=== PATIENT | male | born 1940 | race Caucasian/White ===

== ENCOUNTER → 2017-01-24 | Day surgery (SDC) | payer OTHER, BC ==
[2017-01-18 09:23] VITALS: BMI 24.0
[~2017-01-24] VITALS: Ht 180.3 cm; Wt 81.8 kg
[~2017-01-24] MED LIST: ACETIC ACID 4% (WHITE VINEGAR) 30ML ONE; BENZOCAIN/TETRACA/BUTAM SPRAY 200 APPLN/20 GM SPRY ONE; BISO5TAB3 PO; CHOL100010 PO; CMD4 PO; CMD5 PO; ETOMIDATE 2 MG/ML 20 ML VIAL IV ONE; FORMCAP INH; FURO-85 PO; LIDOCAINE HCL 2% 2 ML VIAL (20MG/ML) ONE; LOSA50TA6 PO; NTRGSL/4 UT; PROPOFOL IV EMULSION 10 MG/ML 20 ML VIAL IV ONE
[2017-01-24 08:45] VITALS: Ht 180.3 cm; Wt 81.8 kg
[2017-01-24 10:06] LABS: INR 1.8 (0.9-1.1); PROTHROMBIN TIME (PATIENT) 19.4 SECONDS (9.0-12.0)
--- NOTE | 2017-01-24 10:36 | Endo History and Physical ---
History & Physical Date of Service: Jan 24, 2017. Chief Complaint: HX OF ESOPHAGEAL CA Referring Physician: DR. QUINN PATRICIA History of Present Illness H/o esophageal cancer Past Medical History Atrial Fibrillation, Cancer, High Cholesterol, CABG, Hypertension, COPD, Implantable Defibrillator, [place] Past Surgical History Hx Cardiac Surgery: Yes (HEART CATH, CABG X4 VESSELS) Hx Internal Defibrillator: Yes (2011 PLACED) Hx Pacemaker: No Hx Abdominal Surgery: No Hx of Implantable Prosthesis: No Hx Post-Op Nausea and Vomiting: No Hx Cancer Surgery: Yes (ESOPHAGEAL CANCER "REMOVED CANCER") Hx Thoracic Surgery: No Hx Orthopedic: No Hx Urinary Tract Surgery: No Family History None Social History Smoking Status: Former Smoker Hx Substance Use: No Hx Alcohol Use: No Allergies Coded Allergies: No Known Allergies (Verified , 01/24/17) Current Medications Reported Home Medications Medications Dose Route/Sig Max Daily Dose Days Date Category Coumadin (Warfarin Sod) 5 Mg Tab 1 Tab PO DIRECTED 01/18/17 Reported Coumadin (Warfarin Sod) 4 Mg Tab 1 Tab PO DIRECTED 01/18/17 Reported Nitrostat (Nitroglycerin) 0.4 Mg Tab 0.4 Mg UT PRN 09/06/14 Reported Lasix (Furosemide) 20 Mg Tab 20 Mg PO QAM 09/06/14 Reported Vitamin D (Cholecalciferol) 1,000 Inter.unit Tab 1,000 Inter.unit PO QAM 03/03/14 Reported Cozaar (Losartan Potassium) 50 Mg Tab 100 Mg PO QAM 07/02/13 Reported Foradil Aerolizer (Formoterol Fumarate) Cap 1 Puff INH BID 07/02/13 Reported Zebeta (Bisoprolol Fumarate) 5 Mg Tab 5 Mg PO BID 07/02/13 Reported Vital Signs Weight (Kilograms): 81.82 Height (Feet): 5 Height (Inches): 11 Date Time Temp Pulse Resp B/P Pulse Ox O2 Delivery O2 Flow Rate FiO2 01/24/17 09:00 36.4 59 20 143/85 96 Room Air Physical Exam General Appearance: no apparent distress Respiratory/Chest: Respiratory effort: no dyspnea Auscultation: breath sounds normal Cardiovascular: Heart Auscultation: RRR Abdomen: Inspection & Palpation: soft Assessment and Plan h/o esophageal cancer - EGD
--- NOTE | 2017-01-24 10:57 | Discharge Instructions ---
Endoscopy Patient Instructions Date / Procedure(s) Performed Jan 24, 2017. EGD Allergy Information Coded Allergies: No Known Allergies (Verified , 01/24/17) Discharge Date / Findings Jan 24, 2017. No evidence of recurrent dysplasia Medication Instructions Stopped Medication(s): COUMADIN Resume coumadin today Provider Instructions Activity Restrictions - No exercising or heavy lifting for 24 hours. - Do not drink alcohol the day of the procedure. - Do not drive a car or operate machinery until the day after the procedure. - Do not make any important decisions or sign important papers in 24 hours after the procedure. Following Day: - Return to full activity which may include returning to work/school. Diet Start your diet with liquids and light foods (jello, soup, juice, toast). Then eat your usual diet if not nauseated. Treatment For Common After Affects For mild abdominal pain, bloating, or excessive gas: - Rest - Eat lightly - Lie on right side Follow-Up Information Follow-up with DR. QUINN PATRICIA as scheduled Anesthesia Information What You Should Know You have had a procedure that required some medicine to reduce anxiety and discomfort. This treatment is called moderate sedation. After receiving the treatment, you may be sleepy, but you will be able to breathe on your own. The effects of the treatment may last for several hours. Follow these instructions along with Activity/Diet recommendations noted above: * Do NOT do anything where dizziness or clumsiness would be dangerous. * Rest quietly at home today, then you can be up and about tomorrow. * Have a responsible person stay with you the rest of today. * You may have had an I.V. today. If so, you may take the dressing off later today. Recommendations Call your doctor if: * Trouble breathing * Continuous vomiting for more than 24 hours * Temperature above 101 degrees * Severe abdominal pain or bloating * Pain not relieved by pain medicine ordered * There is increased drainage or redness from any incision * A large amount of rectal bleeding greater than 2-3 tablespoons. (If you had a polyp/s removed or have hemorrhoids, a small amount of blood - from the rectum is to be expected.) * You have any unanswered questions or concerns. IN THE EVENT OF A SERIOUS EMERGENCY, GO TO THE NEAREST EMERGENCY ROOM Your discharge instructions were prepared by provider Silver Leo. Patient Instructions Signature Page Alexis [place] Patient (or Guardian) Signature/Date: I have read and understand the instructions given to me by my caregivers. Caregiver/RN/Doctor Signature/Date: The above-named patient and/or guardian has received patient instructions on this date. + Original Patient Signature Page (only) stays with chart. Please make copy for patient.
--- NOTE | 2017-01-24 10:57 | GI REPORT ---
Procedure Date: 01/24/2017 10:28 AM Procedure: Upper GI endoscopy Indications: Personal history of malignant esophageal neoplasm Medicines: See the Anesthesia note for documentation of the administered medications Complications: No immediate complications. Estimated Blood Loss: Estimated blood loss: none. Procedure: Pre-Anesthesia Assessment: - ASA Grade Assessment: IV - A patient with severe systemic disease that is a constant threat to life. After obtaining informed consent, the endoscope was passed under direct vision. Throughout the procedure, the patient's blood pressure, pulse, and oxygen saturations were monitored continuously. The scope was introduced through the mouth, and advanced to the second part of duodenum. The upper GI endoscopy was accomplished without difficulty. The patient tolerated the procedure well. Findings: The GE junction was at 40 cm. There was a mild ring at the GE junction. There was a small erosion < 5 mm at the GE junction. Chromoscopy was performed with acetic acid, and was unremarkable. There was no evidence of dysplasia. There was a small hiatal hernia. The stomach and duodenum were normal. Because the pt's INR was mildly increased, and because prior biopsies did not show dysplasia, random bx of GE junction were not done. Impression: - No specimens collected. Recommendation: - Discharge patient to home. Silver Osorio M.D. Silver Osorio MD 01/24/2017 10:56:54 AM This report has been signed electronically. Note Initiated On: 01/24/2017 10:28 AM I attest to the content of the Intraoperative Record and orders documented therein, exceptions below
--- NOTE | 2017-01-24 11:00 | Anesthesiology Progress Note ---
Anesthesia Post Op Note Date & Time Jan 24, 2017 at 11:01 Vital Signs Pain Intensity: 0 Vital Signs Past 12 Hours Date Time Temp Pulse Resp B/P Pulse Ox O2 Delivery O2 Flow Rate FiO2 01/24/17 10:52 56 16 138/70 98 Room Air 01/24/17 09:00 36.4 59 20 143/85 96 Room Air Notes Mental Status: alert / awake / arousable, participated in evaluation Pt Amnestic to Procedure: Yes Nausea / Vomiting: adequately controlled Pain: adequately controlled Airway Patency, RR, SpO2: stable & adequate BP & HR: stable & adequate Hydration State: stable & adequate Anesthetic Complications: no major complications apparent
[2017-01-24 11:22] VITALS: BP 141/88; PULSE 60; O2SAT 96
== END | disposition home or self-care (01) ==
LOC: C.GI 08:24
PROVIDERS: ATTEND Internal Medicine Gastroenterology
DX: Z08 Encounter for follow-up examination after completed treatment for malignant neoplasm (principal); Z85.01 Personal history of malignant neoplasm of esophagus; K44.9 Diaphragmatic hernia without obstruction or gangrene; I48.91 Unspecified atrial fibrillation; E78.5 Hyperlipidemia, unspecified; I25.2 Old myocardial infarction; I10 Essential (primary) hypertension; Z95.1 Presence of aortocoronary bypass graft; Z87.891 Personal history of nicotine dependence; Z79.01 Long term (current) use of anticoagulants